=== PATIENT | female | born 1975 | race Caucasian/White ===

== ENCOUNTER 2016-10-18 09:07 | Inpatient (IN) | payer OTHER ==
--- NOTE | ~2016-10-18 | CN ---
Consultation Report [facility] [address] [place]. [address] NAME: VEL LAM : 73 STATUS : ADM IN PAT#: [id number] AGE: 41 ADM/REG DATE : 10/18/16 MR#: [id number] REPORT SERV DATE: 10/18/16 DICTATED BY: MATTHEW SHOOK DATE: 10/18/16 REPORT STATUS : Draft TRANSCRIBED BY: MODYulia DATE: 10/18/16 GI CONSULTATION DATE OF CONSULTATION: 10/18/2016 REASON FOR CONSULTATION: Evaluation of abdominal pain, history of Crohn disease with questionable small bowel fistula versus Crohn's exacerbation. HISTORY OF PRESENT ILLNESS: Ms Lam is a very pleasant, 41-year-old female patient, who is known to Dr. Brittany Pugh in the outpatient setting who presented to [facility] on 10/18/2016, with progressively worsening of epigastric periumbilical abdominal pain. She states that initially her abdominal pain really began in the beginning of September. She was seen in on 09/30/2016 by Raj Cooper, nurse practitioner, for Dr. Brittany Pugh, for complaints of lower abdominal pain with radiation into her back. Initially, the patient had felt she had a urinary tract infection but was seen by her primary care physician, and UA was obtained and was negative. She states that she has had multiple episodes of abdominal pain. She tells me that initially her abdominal pain was controlled with ibuprofen. She has had intermittent nausea, but no emesis. She is on a regimen of Cimzia at present for her Crohn disease. She has varied with her medications. She has failed azathioprine. She has failed Humira. She failed Imuran. She has failed Pentasa. She has been off prednisone but states none over the last one to two years. She also has failed Remicade and presently, she is on Cimzia as well as methotrexate. She has been running fevers at home. Presently in the hospital, she had a high fever of 101.9. She had an elevated white count 11.3. A noncontrasted CT scan showed loops of small bowel affected by Crohn disease with probable fistula formation and small fluid and gas collection in the mesentery. She is being sent for repeat CT scan with oral and IV contrast. At present, she tells me this is the worse she has ever felt with her Crohn disease and does not feel like Cimzia and methotrexate combination is controlling her symptoms. She has not had any diarrhea. Her bowel movements have been normal without any signs or symptoms of blood. I have discussed with her we will follow up CT scan results. Based on findings, initiate IV steroids. She is presently on Levaquin and Flagyl. She has been seen by her surgeon, Dr. Noel, who will follow along with this. She does have a history of perirectal abscess as well as an anal fistula that she states was flaring at the time she was seen in the office, but she was placed on Cipro and Flagyl. She states she only took one week of a two-week supply, which did alleviate the anal redness that she was experiencing. PAST MEDICAL HISTORY: Crohn disease, perirectal abscess with anal fistula, rectal stricture with history of incision and drainage of that perirectal abscess with seton placement. 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 PAST SURGICAL HISTORY: Includes a lumpectomy, colonoscopy, , as well as I and D of a perirectal abscess and anal fistula with seton placement. Consultation Report [place] [id number] [facility] [place]. [address] NAME: VEL LAM : 73 STATUS : ADM IN [facility]#: [id number] AGE: 41 ADM/REG DATE : 10/18/16 MR#: [id number] REPORT SERV DATE: 10/18/16 DICTATED BY: MATTHEW SHOOK DATE: 10/18/16 REPORT STATUS : Draft TRANSCRIBED BY: GIL DATE: 10/18/16 SOCIAL HISTORY: She is . is at the bedside. Past tobacco use. Rare alcohol. No illicit drugs. FAMILY HISTORY: Positive for inflammatory bowel disease. ALLERGIES: LISTED TO SULFA AND TORADOL. HOME MEDICATIONS: Cimzia every 28 days, last dose was 09/30/2016; ibuprofen; methotrexate; Flintstones chewable vitamin. REVIEW OF SYSTEMS: A 10-point review of systems has been obtained with pertinent positives being addressed in the history of present illness. PHYSICAL EXAMINATION: VITAL SIGNS: Temperature 101.9, pulse of 104, respirations 16, and blood pressure 137/60. NEUROLOGIC: Reveals an alert, female, resting in bed with no obvious focal deficits. GENERAL: Cooperative. She is in distress secondary to epigastric pain. She is awake, alert, oriented x3. HEAD, EARS, EYES, NOSE, AND THROAT: Anicteric. Pupils equal, round, reactive to light and accommodation. Normocephalic and atraumatic. NECK: No JVD. No palpable nodes. LUNGS: Diminished throughout with shallow inspirations noted. CARDIOVASCULAR SYSTEM: Regular rhythm and tachycardic. No murmurs, rubs, or gallops auscultated. ABDOMEN: Soft, but hypoactive. She has tenderness to palpation to the periumbilical area without rebound or guarding. No organomegaly appreciated. EXTREMITIES: No edema. Normal distal pulses. SKIN: Warm, dry, and intact. PERTINENT LABORATORY DATA: Sodium 139, potassium 3.6, BUN 10, creatinine 0.83, white count 1.3, hemoglobin is 11.2, hematocrit 33.6, CO2 is 23. Her total bilirubin is 0.6, alkaline phosphatase 82, ALT 10, AST 8, and lipase 143. ASSESSMENT: 1. Abdominal pain. 2. Nausea. 3. History of Crohn's. 4. CT with questionable small bowel mesenteric fistula versus Crohn's flare. PLAN: 1. We will check a CRP and sedimentation rate. 2. Continue IV antibiotics. 3. Clear liquid diet after CT. Consultation Report [address] [place]. [address] NAME: VEL LAM : 73 STATUS : ADM IN [facility]#: [id number] AGE: 41 ADM/REG DATE : 10/18/16 MR#: [id number] REPORT SERV DATE: 10/18/16 DICTATED BY: MATTHEW SHOOK DATE: 10/18/16 REPORT STATUS : Draft TRANSCRIBED BY: MODL DATE: 10/18/[address] scan. If negative for fistula, begin Solu-Medrol at 20 mg IV q.6 hours. 5. Continue Levaquin and Flagyl. 6. Add Protonix. We will follow. CINTHYA/GIL Empire LUCY Hurt / [id number] CC: Francy Monson VICKI R
--- NOTE | ~2016-10-18 | HP ---
History And Physical [place] [address] [place]. [address] NAME: VEL LAM : 73 STATUS : ADM IN PAT#: [id number] AGE: 41 ADM/REG DATE : 10/18/16 MR#: [id number] REPORT SERV DATE: 10/18/16 DICTATED BY: DANIEL PLATT DATE: 10/18/16 REPORT STATUS : Draft TRANSCRIBED BY: MODuYlia DATE: 10/18/16 DATE OF ADMISSION: 10/18/2016 CHIEF COMPLAINT: Abdominal pain. HISTORY OF PRESENT ILLNESS: The patient is a very pleasant 41-year-old white female with a greater than 10 year history of Crohn disease. She has been on multiple biologic agents. Currently, she is on Cimzia and methotrexate. For the last month, she has had abdominal pain in her mid abdomen. Sometimes it moves to either side, but mostly it is in the mid abdomen. It was intermittent initially. She started having some intermittent fevers also with the abdominal pain. The pain became continuous about Tuesday to the point, but it was intolerable. She took multiple doses of ibuprofen and Tylenol to try to get through the weekend. She had previously seen a nurse practitioner, [place] at Dr. Pugh's office earlier in the month and was placed on some Cipro and Flagyl. Ultimately; however, she is not improved and the pain is become unrelenting. She has had no real diarrheal symptoms. She has had some nausea, but no emesis. She has had no appetite. Her fever at home has been as high as 102, here in the emergency department today it was 101.9 when I took it. PAST MEDICAL HISTORY: 1. Crohn disease. 2. LCIS of the right breast with a lumpectomy. 3. Perirectal abscess and fistula formation. 4. Nephrolithiasis. FAMILY HISTORY: She had a grandmother with Crohn. There is also history of hypertension and hyperlipidemia. ALLERGIES: SULFA, TORADOL. PAST SURGICAL HISTORY: She has had a lumpectomy and two C-sections. SOCIAL HISTORY: She quit smoking about 10 years ago. Does not drink any alcohol. 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 HOME MEDICATIONS: Reviewed and attached. REVIEW OF SYSTEMS: Full 10-point review of systems obtained, pertinent positives are already mentioned in the HPI. PHYSICAL EXAMINATION: VITAL SIGNS: Current temperature is 101.9, BP 132/64, pulse 101, respiratory rate 12, saturations 100%. GENERAL: Well-developed white female, in no obvious distress. HEENT: Normocephalic, atraumatic. Throat is clear. NECK: Supple. History And Physical [address] [place]. [address] NAME: VEL LAM : 73 STATUS : ADM IN PAT#: [id number] AGE: 41 ADM/REG DATE : 10/18/16 MR#: [id number] REPORT SERV DATE: 10/18/16 DICTATED BY: DANIEL PLATT DATE: 10/18/16 REPORT STATUS : Draft TRANSCRIBED BY: GIL DATE: 10/18/16 HEART: Regular rate and rhythm. Tachycardic. LUNGS: Grossly clear. ABDOMEN: Soft. She has diminished bowel sounds. She is tender in the mid abdominal area. EXTREMITIES: Warm and dry. SKIN: Intact without rash or lesion. She has no peripheral edema. NEURO: She is alert. Her speech is intact. She is oriented to person, place, and time. LABORATORY AND X-RAY: CBC shows white count of 11, H and H 11 and 34, platelet count is 324. HCG is negative. Urinalysis is benign. CMP: Sodium 139, potassium 3.6, chloride 106, CO2 of 23, BUN and creatinine 10 and 0.83, glucose 101. LFTs are normal. Lipase is 143. CT abdomen and pelvis shows loop of small bowel effected by Crohn with probable fistula formation, small fluid and gas collection in the mesentery. Repeat imaging with oral contrast with best to find the process and a man made structure in the rectum has appearance consistent with a catheter. She has a history of prior rectal abscess drainage. ASSESSMENT/PLAN: 1. Crohn disease with abdominal pain for a month with associated fever certainly suspicious for Crohn flare, but must rule out fistula as described in CT. Discussed the case with Dr. Brittany Pugh. We will go ahead and proceed with the contrasted scan. We will culture her blood. Check procalcitonin and lactic acid. We will send stool studies if she has diarrhea. We will cover her empirically with Flagyl and Levaquin. I discussed her case with the on service GI home service consultant also. Consulting service they are going to see the patient today. We will hold off on any steroids until we see the results of her scans. We will keep her n.p.o., provide aggressive fluid resuscitation, aggressive antinausea medications, IV analgesics. Once we have her CT scan with contrast back, we will make further disposition regarding steroids etc. GI will be on board seeing her and helping manage this patient. 2. 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 3. History of previous perirectal abscess and fistula. 4. History of nephrolithiasis. 5. Deep venous thrombosis prophylaxis, subcutaneous heparin. 6. Disposition, pending above. MARY/SONIAL Daniel Platt M.D. / [id number] CC: Francy Monson Vicki R Colleen Schmitt, M.D.
--- NOTE | ~2016-10-18 | CN ---
Consultation Report [facility] [address] [place]. [address] NAME: VEL LAM : 73 STATUS : ADM IN PAT#: [id number] AGE: 41 ADM/REG DATE : 10/18/16 MR#: [id number] REPORT SERV DATE: 10/18/16 DICTATED BY: DOMINGUEZ NOEL DATE: 10/18/16 REPORT STATUS : Draft TRANSCRIBED BY: MODL DATE: 10/18/16 CONSULTATION DATE OF CONSULTATION: 10/18/2016 REASON FOR CONSULTATION: Abdominal pain. HISTORY OF PRESENT ILLNESS: This is a 41-year-old female, known to me from a prior treatment of anorectal problem, now with abdominal pain for the last month. She states, this is intermittent and resolves with ibuprofen. She states that, it is accompanied by chills and fever up to 101. She has intense nausea, but no vomiting. She denies any diarrhea. She does have some associated cough. She has been seen in Dr. Pugh's office, and a battery of stool studies was by her report negative, although I do not have access to those records at this time. PAST MEDICAL HISTORY: Significant for Crohn's disease for the last ten plus years and LCIS of her left breast. PAST SURGICAL HISTORY: Left lumpectomy x1, C-sections x2, and several anorectal interventions culminating in a C-ton, which is indwelling due to her currently uncontrolled Crohn's disease. SOCIAL HISTORY: The patient is and her is with her today. She denies smoking currently, although she does have a history of smoking over ten years ago. She use alcohol only very rarely and denies any intravenous drug use. MEDICATIONS: Cimzia and her last dose was about two weeks ago or so. She takes this every four weeks. She also was on methotrexate, which she last took on Tuesday. ALLERGIES: SULFA AND TORADOL. REVIEW OF SYSTEMS: Negative x12 systems reviewed for any pertinent positives or negatives related to the chief complaint except for those mentioned above. PHYSICAL EXAMINATION: VITAL SIGNS: 143/77, pulse is 112, respiratory rate 23. GENERAL: Alert, oriented x3. No acute distress, although she is somewhat tearful, this seems more due to motion rather than actual pain. HEENT: Normocephalic, atraumatic. NECK: Supple. No carotid bruits are noted. No cervical lymphadenopathy. CHEST: Clear to auscultation bilaterally. HEART: Regular rate and rhythm. No murmurs, rubs, or gallops are auscultated. ABDOMEN: Soft, with marked tenderness in the periumbilical area and lower midline, although Consultation Report [place] [id number] [place] [address] NAME: VEL LAM : 73 STATUS : ADM IN PAT#: [id number] AGE: 41 ADM/REG DATE : 10/18/16 MR#: [id number] REPORT SERV DATE: 10/18/16 DICTATED BY: DOMINGUEZ NOEL DATE: 10/18/16 REPORT STATUS : Draft TRANSCRIBED BY: GIL DATE: 10/18/16 there are certainly no peritoneal signs. No rebound. No guarding. No scars noted. EXTREMITIES: Warm, well perfused without edema. NEURO: No focal neurologic deficits are noted on gross exam. RECTAL: The patient has some small skin tags and a right-sided C-ton, which is in good position. There is no tenderness around the anus. No evidence of purulence or other inflammation in the area. IMAGING: I personally reviewed the CT scan as well as the report. I disagree with report. I do not believe there is any evidence of the fistula to the mesentery. I rather believe there is simply a very inflamed loop of bowel. Although, bubbles of gas noted in the report, I believe to be intraluminal. There is certainly no evidence of free air. There are no other thickened loops of bowel noted. LABORATORIES: I have personally reviewed all her labs and her white blood cell count is mildly elevated at 11.3. All her labs are essentially within normal limits. Lipase is 143. ASSESSMENT: A 41-year-old female with long history of Crohn's disease, now with Crohn's flare, but I really doubt there is a fistula or even any large extraluminal abscess at this time. PLAN: I recommend medical treatment at this time. I have personally discussed the case with Dr. Pugh's office and they will be following up on the patient to make recommendations as far as what medical treatment she consist of. There are no evidence of any rectal surgical issues at this time. Her C-ton will clearly remain in place for the foreseeable future. I will follow along, but hopefully she will not require surgical treatment during this admission. ECN/MODL Dominguez Noel MD / [id number] CC: Angelique Pugh M.D.
--- NOTE | ~2016-10-18 | DS ---
Discharge Summary [facility] [address] [place]. [address] NAME: VEL LAM : 73 STATUS : ADM IN [facility]#: [id number] AGE: 41 ADM/REG DATE : 10/18/16 MR#: [id number] REPORT SERV DATE: 10/24/16 DICTATED BY: MELVI OVERTON DATE: 10/24/16 REPORT STATUS : Draft TRANSCRIBED BY: MODL DATE: 10/24/16 ADMISSION DATE: 10/18/2016 DISCHARGE DATE: 10/24/2016 CHIEF COMPLAINT: Abdominal pain. DISCHARGING DIAGNOSES: 1. Crohn's disease with acute exacerbation, small-bowel fistula. 2. Mesenteric abscess. 3. Abdominal pain. HISTORY OF PRESENT ILLNESS: Please see full H and P by Dr. Rachel Platt for details regarding initial presentation. HOSPITAL COURSE: 1. Crohn's disease with acute exacerbation and small-bowel fistula causing mesenteric abscess. The patient was admitted to the hospital, seen by surgery, a drain was placed by IR. Her cultures have grown E coli, sensitive to fluoroquinolones. She will be discharged on p.o. steroids as well as antibiotics with Levaquin and Flagyl per GI recommendations. Again, her surgical culture did grow E. coli as well as coag-negative Staph and strep. These are sensitive to fluoroquinolones, which she will be treated for an additional six days. She will have drain teaching prior to discharge. She will follow up with Dr. Noel later this week for further planning with drain, in addition to Dr. Pugh regarding her Crohn's disease, and further planning for any additional treatment as an outpatient. 2. Abdominal pain. The patient's pain has much improved. She will be sent home with some p.r.n. Perham for pain management if needed. DISPOSITION: Home. FOLLOWUP: Follow up with Dr. Noel and Dr. Pugh. She will be on a GI soft bland diet for the next week. HOME MEDICATIONS: Perham 5/325 p.r.n., levofloxacin 750 mg for six days daily, Flagyl 500 mg q.8 hours for six days, prednisone 40 mg, please hold methotrexate until the infection is better. Time spent on discharge greater than 30 minutes. FLORESITA/GIL Melvi Overton MD Discharge Summary [address] [place]. [address] NAME: VEL LAM : 73 STATUS : ADM IN PAT#: [id number] AGE: 41 ADM/REG DATE : 10/18/16 MR#: [id number] REPORT SERV DATE: 10/24/16 DICTATED BY: MELVI OVERTON DATE: 10/24/16 REPORT STATUS : Draft TRANSCRIBED BY: GIL DATE: 10/24/16 / [id number] CC: MD Angelique Cary
[2016-10-18 08:28] LABS: BASOPHILS 0.2 %; BASOPHILS ABSOLUTE 0.02 10/3/uL (0.0-0.16); EOSINOPHILS ABSOLUTE 0.23 10/3/uL (0.0-0.53); ER CBC TAT 0 Hrs 03 Mins; HEMATOCRIT 33.6 % (36.0-48.0); HEMOGLOBIN 11.2 g/dL (12.0-16.0); IMMATURE GRANULOCYTES 0.4 %; IMMATURE GRANULOCYTES ABSOLUTE 0.05 10/3/uL (0.0-0.11); LYMPHOCYTES ABSOLUTE 1.13 10/3/uL (0.67-4.30); MEAN CORPUS HGB CONC 33.3 g/dL (32.0-36.0); MEAN CORPUSCULAR HEMOGLOB 26.5 pg (26.0-34.0); MEAN CORPUSCULAR VOLUME 79.6 fL (80-100); MEAN PLATELET VOLUME 8.9 fL (9.2-13.0); MONOCYTES ABSOLUTE 0.79 10/3/uL (0.21-1.20); NEUTROPHILS 80.4 %; NEUTROPHILS ABSOLUTE 9.09 10/3/uL (2.02-8.40); PLATELET COUNT 324 10/3/uL (150-400); RBC DISTRIBUTION WIDTH 13.4 % (12.0-16.0); RED CELL COUNT 4.22 10/6/uL (4.0-5.6); WHITE BLOOD CELLS 11.3 10/3/uL (4.5-10.5)
[2016-10-18 08:45] LABS: ASCORBIC ACID (UR NOT ORDER) NEG (NEG); BILIRUBIN, URINE NEGATIVE (NEG); ER URINALYSIS TAT 0 Hrs 20 Mins; KETONE, URINE NEGATIVE (NEG); LEUKOCYTE ESTERASE(NOT OR TRACE (NEG); NITRITE (URINE) NEG (NEG); WBC (NOT ORDERED) (RFLEX) 4 (0-5)
[2016-10-18 08:52] LABS: A/G RATIO 0.7 (0.7-1.9); ALKALINE PHOSPHATASE 82 U/L (45-117); BUN (BLOOD UREA NITROGEN) 10 MG/DL (6-23); CALCIUM, SERUM 8.5 MG/DL (8.5-10.4); CHLORIDE, SERUM 106 MMOL/L (96-112); CO2 (CARBON DIOXIDE) 23 MMOL/L (24-34); CREATININE 0.83 MG/DL (0.55-1.02); GFR AFRICAN AMERICAN 101 ML/MIN (>=60); GFR NON AFRICAN AMERICAN 87 ML/MIN (>=60); GLOBULIN 4.6 G/DL (2.5-4.1); GLUCOSE, SERUM 95 MG/DL (60-99); POTASSIUM, SERUM 3.6 MMOL/L (3.5-5.3); SGOT(AST) 8 U/L (5-40); SGPT(ALT) 10 U/L (5-65); SODIUM, SERUM 139 MMOL/L (135-148); TOTAL BILIRUBIN 0.6 MG/DL (0-1.2); TOTAL PROTEIN 7.6 G/DL (6.0-8.5)
[~2016-10-18 09:07] MED LIST: ACET500CAP PO; FLAG500TAB PO; HUMIRA PEN SC; LEVAQUIN750 MG PO; MULTIVIT/MIN PO; PCET PO
[2016-10-18] MEDS ORDERED: CIMZIA SC (11:17)
[2016-10-18] MEDS ORDERED: MTX50 IM (11:18)
[2016-10-18] MEDS ORDERED: FLINTSTONE3 PO (11:18)
[2016-10-18] MEDS ORDERED: GENPRIL200 MG PO (11:19)
[2016-10-18] MEDS ORDERED: CIP5 PO (11:29)
[2016-10-18] MEDS ORDERED: FLAG500TAB PO (11:29)
[2016-10-18 19:45] LABS: PHOSPHORUS, SERUM 2.8 MG/DL (2.5-4.5)
[2016-10-18 19:49] LABS: LACTATE 0.5 MMOL/L (0.3-2.4)
[2016-10-18 20:18] LABS: PROCALCITONIN <0.05 ng/mL (<0.5)
[2016-10-19 03:45] LABS: BASOPHILS 0.1 %; BASOPHILS ABSOLUTE 0.01 10/3/uL (0.0-0.16); EOSINOPHILS 0 %; HEMATOCRIT 30.9 % (36.0-48.0); HEMOGLOBIN 10.2 g/dL (12.0-16.0); IMMATURE GRANULOCYTES 0.4 %; IMMATURE GRANULOCYTES ABSOLUTE 0.04 10/3/uL (0.0-0.11); LYMPHOCYTES 6.7 %; MEAN CORPUSCULAR HEMOGLOB 26.4 pg (26.0-34.0); MEAN CORPUSCULAR VOLUME 80.1 fL (80-100); MEAN PLATELET VOLUME 9.2 fL (9.2-13.0); MONOCYTES 3.7 %; MONOCYTES ABSOLUTE 0.33 10/3/uL (0.21-1.20); NEUTROPHILS 89.1 %; NEUTROPHILS ABSOLUTE 7.91 10/3/uL (2.02-8.40); PLATELET COUNT 296 10/3/uL (150-400); RBC DISTRIBUTION WIDTH 13.1 % (12.0-16.0); RED CELL COUNT 3.86 10/6/uL (4.0-5.6); WHITE BLOOD CELLS 8.9 10/3/uL (4.5-10.5)
[2016-10-19 03:46] LABS: MANUAL DIFF NO %
[2016-10-19 03:53] LABS: INTERNATIONAL NORMAL RATI 1.3 UNITS (-); PROTIME (NOT ORD) 16.2 SEC (12.0-14.5)
[2016-10-19 03:57] LABS: BUN (BLOOD UREA NITROGEN) 7 MG/DL (6-23); CALCIUM, SERUM 8.4 MG/DL (8.5-10.4); CHLORIDE, SERUM 109 MMOL/L (96-112); CO2 (CARBON DIOXIDE) 22 MMOL/L (24-34); CREATININE 0.69 MG/DL (0.55-1.02); GFR AFRICAN AMERICAN 124 ML/MIN (>=60); GFR NON AFRICAN AMERICAN 107 ML/MIN (>=60); GLUCOSE, SERUM 114 MG/DL (60-99); POTASSIUM, SERUM 4.2 MMOL/L (3.5-5.3); SODIUM, SERUM 141 MMOL/L (135-148)
[2016-10-20 05:56] LABS: BASOPHILS 0 %; EOSINOPHILS 0 %; HEMATOCRIT 29.3 % (36.0-48.0); HEMOGLOBIN 9.8 g/dL (12.0-16.0); IMMATURE GRANULOCYTES 0.6 %; IMMATURE GRANULOCYTES ABSOLUTE 0.04 10/3/uL (0.0-0.11); LYMPHOCYTES 10.2 %; LYMPHOCYTES ABSOLUTE 0.73 10/3/uL (0.67-4.30); MEAN CORPUS HGB CONC 33.4 g/dL (32.0-36.0); MEAN CORPUSCULAR HEMOGLOB 26.2 pg (26.0-34.0); MEAN CORPUSCULAR VOLUME 78.3 fL (80-100); MONOCYTES 4.5 %; MONOCYTES ABSOLUTE 0.32 10/3/uL (0.21-1.20); NEUTROPHILS 84.7 %; NEUTROPHILS ABSOLUTE 6.06 10/3/uL (2.02-8.40); PLATELET COUNT 304 10/3/uL (150-400); RBC DISTRIBUTION WIDTH 13.3 % (12.0-16.0); RED CELL COUNT 3.74 10/6/uL (4.0-5.6); WHITE BLOOD CELLS 7.2 10/3/uL (4.5-10.5)
[2016-10-20 06:03] LABS: MANUAL DIFF NO %
[2016-10-20 06:11] LABS: BUN (BLOOD UREA NITROGEN) 9 MG/DL (6-23); CALCIUM, SERUM 8.3 MG/DL (8.5-10.4); CHLORIDE, SERUM 109 MMOL/L (96-112); CO2 (CARBON DIOXIDE) 22 MMOL/L (24-34); CREATININE 0.71 MG/DL (0.55-1.02); GFR AFRICAN AMERICAN 122 ML/MIN (>=60); GFR NON AFRICAN AMERICAN 105 ML/MIN (>=60); GLUCOSE, SERUM 128 MG/DL (60-99); POTASSIUM, SERUM 4.3 MMOL/L (3.5-5.3); SODIUM, SERUM 141 MMOL/L (135-148)
[2016-10-21 05:04] LABS: BASOPHILS 0.1 %; BASOPHILS ABSOLUTE 0.01 10/3/uL (0.0-0.16); EOSINOPHILS 0 %; HEMOGLOBIN 10.7 g/dL (12.0-16.0); IMMATURE GRANULOCYTES 0.6 %; IMMATURE GRANULOCYTES ABSOLUTE 0.06 10/3/uL (0.0-0.11); LYMPHOCYTES 11.8 %; LYMPHOCYTES ABSOLUTE 1.21 10/3/uL (0.67-4.30); MEAN CORPUS HGB CONC 32.7 g/dL (32.0-36.0); MEAN CORPUSCULAR HEMOGLOB 26.3 pg (26.0-34.0); MEAN CORPUSCULAR VOLUME 80.3 fL (80-100); MEAN PLATELET VOLUME 9.5 fL (9.2-13.0); MONOCYTES 5.8 %; MONOCYTES ABSOLUTE 0.59 10/3/uL (0.21-1.20); NEUTROPHILS 81.7 %; NEUTROPHILS ABSOLUTE 8.39 10/3/uL (2.02-8.40); PLATELET COUNT 353 10/3/uL (150-400); RBC DISTRIBUTION WIDTH 13.4 % (12.0-16.0); RED CELL COUNT 4.07 10/6/uL (4.0-5.6)
[2016-10-21 05:07] LABS: HEMATOCRIT 32.7 % (36.0-48.0); MANUAL DIFF NO %; WHITE BLOOD CELLS 10.3 10/3/uL (4.5-10.5)
[2016-10-22 06:07] LABS: BASOPHILS 0.1 %; BASOPHILS ABSOLUTE 0.01 10/3/uL (0.0-0.16); EOSINOPHILS 0 %; HEMATOCRIT 29.8 % (36.0-48.0); HEMOGLOBIN 9.9 g/dL (12.0-16.0); IMMATURE GRANULOCYTES 0.7 %; IMMATURE GRANULOCYTES ABSOLUTE 0.05 10/3/uL (0.0-0.11); LYMPHOCYTES 13.1 %; LYMPHOCYTES ABSOLUTE 0.99 10/3/uL (0.67-4.30); MEAN CORPUS HGB CONC 33.2 g/dL (32.0-36.0); MEAN CORPUSCULAR HEMOGLOB 26.3 pg (26.0-34.0); MEAN CORPUSCULAR VOLUME 79.3 fL (80-100); MEAN PLATELET VOLUME 9.3 fL (9.2-13.0); MONOCYTES 7.1 %; MONOCYTES ABSOLUTE 0.54 10/3/uL (0.21-1.20); NEUTROPHILS ABSOLUTE 5.98 10/3/uL (2.02-8.40); PLATELET COUNT 353 10/3/uL (150-400); RBC DISTRIBUTION WIDTH 13.6 % (12.0-16.0); RED CELL COUNT 3.76 10/6/uL (4.0-5.6); WHITE BLOOD CELLS 7.6 10/3/uL (4.5-10.5)
[2016-10-22 06:12] LABS: MANUAL DIFF NO %
[2016-10-22 06:23] LABS: A/G RATIO 0.7 (0.7-1.9); ALBUMIN 2.7 G/DL (3.5-5.0); CALCIUM, SERUM 8.6 MG/DL (8.5-10.4); CHLORIDE, SERUM 106 MMOL/L (96-112); CO2 (CARBON DIOXIDE) 26 MMOL/L (24-34); CREATININE 0.83 MG/DL (0.55-1.02); GFR AFRICAN AMERICAN 101 ML/MIN (>=60); GFR NON AFRICAN AMERICAN 87 ML/MIN (>=60); GLOBULIN 3.7 G/DL (2.5-4.1); GLUCOSE, SERUM 126 MG/DL (60-99); POTASSIUM, SERUM 3.9 MMOL/L (3.5-5.3); SGOT(AST) 10 U/L (5-40); SGPT(ALT) 12 U/L (5-65); SODIUM, SERUM 142 MMOL/L (135-148); TOTAL BILIRUBIN 0.6 MG/DL (0-1.2); TOTAL PROTEIN 6.4 G/DL (6.0-8.5)
[2016-10-22 06:26] LABS: ALKALINE PHOSPHATASE 57 U/L (45-117); BUN (BLOOD UREA NITROGEN) 5 MG/DL (6-23)
[2016-10-22 06:49] LABS: C-REACTIVE PROTEIN 16.5 MG/L (<8.0)
[2016-10-22 06:55] LABS: SED RATE 16 MM/HR (0-20)
[2016-10-23 05:35] LABS: BUN (BLOOD UREA NITROGEN) 6 MG/DL (6-23); CALCIUM, SERUM 8.2 MG/DL (8.5-10.4); CHLORIDE, SERUM 108 MMOL/L (96-112); CO2 (CARBON DIOXIDE) 28 MMOL/L (24-34); CREATININE 0.91 MG/DL (0.55-1.02); GFR AFRICAN AMERICAN 90 ML/MIN (>=60); GFR NON AFRICAN AMERICAN 78 ML/MIN (>=60); GLUCOSE, SERUM 124 MG/DL (60-99); SODIUM, SERUM 144 MMOL/L (135-148)
[2016-10-24] MEDS ORDERED: LEVAQUIN750 MG PO (11:14)
[2016-10-24] MEDS ORDERED: FLAG500TAB PO (11:15)
[2016-10-24] MEDS ORDERED: P20 PO (11:16)
[2016-10-24] MEDS ORDERED: NORCO1 TA1 PO (11:17)
[2016-11-03] MEDS ORDERED: PURINETHOL50 MG PO (15:03)
[2016-11-22] MEDS ORDERED: FLAGYL250 MG PO (10:52)
[2016-11-22] MEDS ORDERED: ATV.5 PO (10:52)
== END 2016-10-24 17:31 | disposition home or self-care (01) | DRG 386 ==
LOC: ER 09:07 → 4EA 16:27
PROVIDERS: Internal Medicine; Nurse Practitioner; Nurse Practitioner Family
PROC: 0W9F30Z Drainage of Abdominal Wall with Drainage Device, Percutaneous Approach (ICD-10-PCS; principal; 2016-10-19)
PROC: BW111ZZ Fluoroscopy of Abdomen and Pelvis using Low Osmolar Contrast (ICD-10-PCS; 2016-10-20)
DX: K50.913 Crohn's disease, unspecified, with fistula (principal); K50.914 Crohn's disease, unspecified, with abscess
CPT/HCPCS: 49083; 49418; 49424; 74176; 74177; 76080; 80048; 80053; 81001; 82947; 83605; 83690; 83735; 84100; 84145; 84703; 85025; 85610; 85652; 85730; 86140; 87040; 87045; 87046; 87046-59; 87070; 87075; 87077; 87186; 87205; 87328; 87329; 87493; 87493-59; 87899; 87899-59; 89055; 96374; 96375; 99152; 99285; A9270-GY; C1729; C1769; C9113; J1170; J1644; J1956; J2250; J2405; J2920; J3010; Q9967